=== PATIENT | female | born 1980 | race Caucasian/White ===

== ENCOUNTER 2018-11-14 11:24 | Observation (INO) ==
--- NOTE | 2018-11-14 12:04 | ED ---
History of Present Illness Primary Care Physician: No Primary Care Physician Chief Complaint: PIH History of Present Illness: 37 y/o at 34/2 (estimated due date 12/24/2018 by ultrasound on 08/09/2018 at 20 weeks) presenting to the OB ED with elevated blood pressures. Was sent over from care for woman by Dr. Ligia Posada after being found to have headache with "visual disturbances" and elevated blood pressure. 24-hour protein resulted at 318. Blood pressure in clinic was found to be 152/92. Patient is a history of elevated blood pressures/possible preeclampsia in the later stage of her pregnancies. States that she has never undergone treatment. so far has had no other abnormalities (including PIH workup). Patient states that she has a headache that started a couple days ago. Denies visual disturbances, right upper quadrant pain, leg swelling. Denies vaginal bleeding, leakage of fluid, contractions. Endorses movement. OB history: Vaginal delivery 2004 at 36-37 weeks and 2005, 7 pounds. Vaginal delivery 2008 at 36-37 weeks, 7 pounds. Vaginal delivery 2011 38-39 weeks. Medical history: None Surgical history: D&C 2018 Family history: Sister with a history of PIH Social history: No alcohol, illicit/recreational drug use No history of sexually transmitted diseases/infections Review of Systems All other systems reviewed negative except as stated in HPI Medications and Allergies Allergies Allergy/AdvReac Type Severity Reaction Status Date / Time No Known Allergies Allergy Unknown Uncoded 03/07/18 13:15 Exam Vital signs: Vital Signs 11/14/18 11:48 11/14/18 11:53 Temperature 98.2 F Pulse Rate 102 H Respiratory Rate 20 Blood Pressure 150/87 H Narrative: GENERAL: Well-nourished, well-developed patient. SKIN: Warm and dry. HEAD: Normocephalic and atraumatic. EYES: No scleral icterus. No injection or drainage. ENT: No nasal drainage noted. Mucous membranes pink. Airway patent. NECK: Supple, trachea midline. No JVD. CARDIOVASCULAR: Regular rate and rhythm without murmurs, gallops, or rubs. RESPIRATORY: Breath sounds equal bilaterally. No accessory muscle use. BREASTS: Bilateral exam showed no masses , no retractions, no nipple discharge. ABDOMEN/GI: Abdomen soft, non-tender, bowel sounds present, no rebound, no guarding Gravid to [-] weeks size Fundal Height: [-] GENITOURINARY: External Genitalia: intact and normal in appearance BUS glands: [-] Cervix: [-] Dilatation: [-] Effacement: [-] Station: [-] Presentation: [-] Membranes: [intact or ruptured] Uterine Contractions: [-] FHT's: Category: 1 Baseline: 150s Reactive: yes Variability: mod Decels: no EXTREMITIES: No cyanosis or edema. BACK: Nontender without obvious deformity. No CVA tenderness. NEUROLOGICAL: Awake and alert. Motor and sensory grossly within normal limits. Five out of 5 muscle strength in all muscle groups. Normal speech. Assessment and Plan - Diagnosis (1) Preeclampsia Code(s): O14.90 - Unspecified pre-eclampsia, unspecified trimester Status: Acute (2) Code(s): Z34.90 - Encounter for supervision of normal , unspecified, unspecified trimester Status: Acute - Plan 37-year-old at 34/2 admitted for preeclampsia workup and 23-hour observation. heart tracing reassuring. Blood pressure today 150/87. Last ultrasound was done at 20 weeks and showed no abnormalities. 1. Preeclampsia Order CBC, CMP, uric acid, P/C ratio, and BPP NST Monitor BPs 2. Expectant management Discussed w/Dr. Brock Discharge Plan - Discharge Disposition Patient Disposition: ED Admit(ED Internal Use Only) - Physicians Team ED Provider: Kevin Brock Primary Care Provider: Primary Care Zakia Wen - Rxs /Orders / Referrals /Forms Referrals: Primary Care Zakia Wen [Primary Care Provider] - See Instructions - Discharge Instructions Print Language: Yi
[2018-11-14] MEDS ORDERED: Acetaminophen 325 MG Tablet PO PRN (12:25)
--- NOTE | 2018-11-14 12:44 | P.HPOB ---
History of Present Illness Primary Care Physician: No Primary Care Physician Chief Complaint: PIH History of Present Illness: 37 y/o at 34/2 (estimated due date 12/24/2018 by ultrasound on 08/09/2018 at 20 weeks) presenting to the OB ED with elevated blood pressures. Was sent over from care for woman by Dr. Ligia Posada after being found to have headache with "visual disturbances" and elevated blood pressure. 24-hour protein resulted at 318. Blood pressure in clinic was found to be 152/92. Patient is a history of elevated blood pressures/possible preeclampsia in the later stage of her pregnancies. States that she has never undergone treatment. so far has had no other abnormalities (including PIH workup). Patient states that she has a headache that started a couple days ago. Denies visual disturbances, right upper quadrant pain, leg swelling. Denies vaginal bleeding, leakage of fluid, contractions. Endorses movement. OB history: Vaginal delivery 2004 at 36-37 weeks and 2005, 7 pounds. Vaginal delivery 2008 at 36-37 weeks, 7 pounds. Vaginal delivery 2011 38-39 weeks. Medical history: None Surgical history: D&C 2018 Family history: Sister with a history of PIH Social history: No alcohol, illicit/recreational drug use No history of sexually transmitted diseases/infections Review of Systems All other systems reviewed negative except as stated in HPI Medications and Allergies Allergies Allergy/AdvReac Type Severity Reaction Status Date / Time No Known Allergies Allergy Unknown Uncoded 03/07/18 13:15 Exam Vital signs: Vital Signs 11/14/18 11:48 11/14/18 11:53 Temperature 98.2 F Pulse Rate 102 H Respiratory Rate 20 Blood Pressure 150/87 H Narrative: GENERAL: Well-nourished, well-developed patient. SKIN: Warm and dry. HEAD: Normocephalic and atraumatic. EYES: No scleral icterus. No injection or drainage. ENT: No nasal drainage noted. Mucous membranes pink. Airway patent. NECK: Supple, trachea midline. No JVD. CARDIOVASCULAR: Regular rate and rhythm without murmurs, gallops, or rubs. RESPIRATORY: Breath sounds equal bilaterally. No accessory muscle use. BREASTS: Bilateral exam showed no masses , no retractions, no nipple discharge. ABDOMEN/GI: Abdomen soft, non-tender, bowel sounds present, no rebound, no guarding Gravid to [-] weeks size Fundal Height: [-] GENITOURINARY: External Genitalia: intact and normal in appearance BUS glands: [-] Cervix: [-] Dilatation: [-] Effacement: [-] Station: [-] Presentation: [-] Membranes: [intact or ruptured] Uterine Contractions: [-] FHT's: Category: 1 Baseline: 150s Reactive: yes Variability: mod Decels: no EXTREMITIES: No cyanosis or edema. BACK: Nontender without obvious deformity. No CVA tenderness. NEUROLOGICAL: Awake and alert. Motor and sensory grossly within normal limits. Five out of 5 muscle strength in all muscle groups. Normal speech. Assessment and Plan - Diagnosis (1) Preeclampsia Code(s): O14.90 - Unspecified pre-eclampsia, unspecified trimester Status: Acute (2) Code(s): Z34.90 - Encounter for supervision of normal , unspecified, unspecified trimester Status: Acute - Plan 37-year-old at 34/2 admitted for preeclampsia workup and 23-hour observation. heart tracing reassuring. Blood pressure today 150/87. Last ultrasound was done at 20 weeks and showed no abnormalities. 1. Preeclampsia Order CBC, CMP, uric acid, P/C ratio, and BPP NST Monitor BPs 2. Expectant management Discussed w/Dr. Brock
[2018-11-14 12:45] LABS: Hematocrit 35.7 % (35.0-46.0); Hemoglobin 12.1 gm/dL (11.6-15.3); Mean Corpuscular HGB Conc 33.8 % (32.0-36.0); Mean Corpuscular Hemoglobin 29.4 pg (27.0-34.0); Mean Corpuscular Volume 86.8 fL (80.0-100.0); Mean Platelet Volume 9.9 fL (7.0-11.0); Platelet Count 237 th/mm3 (150-450); Red Blood Count 4.12 mil/mm3 (4.00-5.30); Red Cell Distribution Width 13.8 % (11.6-17.2); White Blood Count 9.3 th/mm3 (4.0-11.0)
[2018-11-14 13:04] LABS: Bacteria,Urine Occasional /hpf; Bilirubin,Urine Negative (Negative); Clarity,Urine Clear (Clear); Color,Urine Straw (Yellw/Straw); Glucose,Urine (UA) Negative (Negative); Leukocyte Esterase,Urine Negative (Negative); Nitrite,Urine Negative (Negative); Specific Gravity,Urine 1.003 (1.002-1.035); Squamous Epithelial Cell,Urine 1 /hpf (0-5)
[2018-11-14 13:05] LABS: Alanine Aminotransferase 25 U/L (10-53); Anion Gap 10 meq/L (5-15); Aspartate Aminotransferase 25 U/L (15-37); Blood Urea Nitrogen 6 mg/dL (7-18); Calcium 8.7 mg/dL (8.5-10.1); Carbon Dioxide 24.8 meq/L (21.0-32.0); Chloride 106 meq/L (98-107); Glomerular Filtration Rate Greater Than 89 mL/min (>89); Glucose,Random 86 mg/dL (74-106); Potassium 3.6 meq/L (3.5-5.1); Sodium 141 meq/L (136-145); Uric Acid 4.4 mg/dl (2.6-6.0)
[2018-11-14 13:06] LABS: Creatinine,Urine Random 21 mg/dL (27-300); Protein/Creatinine Ratio,Urine 0.24 (0.00-0.14)
[2018-11-14 13:08] LABS: Alkaline Phosphatase 116 U/L (45-117); Total Protein 7.1 g/dL (6.4-8.2)
[2018-11-14 23:04] VITALS: RESP 16
[2018-11-15 03:20] VITALS: TEMP 98.2
--- NOTE | 2018-11-15 07:41 | P.OBLABOR ---
Objective Vital Signs: Vital Signs - 8 hr 11/15/18 03:19 Temperature 98.2 F Pulse Rate 74 Respiratory Rate 16 Blood Pressure 120/61 Objective: Pelvic Exam: Cervix: [-] Dilatation: [-] Effacement: [-] Station: [-] Presentation: [-] Membranes: [intact or ruptured] Uterine Contractions: [-] FHT's: Category: [-] Baseline: [-] Reactive: [-] Variability: [-] Decels: [-] Assessment and Plan - Diagnosis (1) Preeclampsia Code(s): O14.90 - Unspecified pre-eclampsia, unspecified trimester Status: Acute (2) Code(s): Z34.90 - Encounter for supervision of normal , unspecified, unspecified trimester Status: Acute
--- NOTE | 2018-11-15 07:55 | P.OBANTE ---
Subjective - Diagnosis (1) Preeclampsia Diagnosis: Principal Interval History: No new symptoms. Patient states she still has headache, but symptoms are minimal. No vision changes, LE swelling, RUQ pain. Feeling well enough to go home. Vitals overnight wnl. Objective Vital Signs and I&O: Vital Signs 11/14/18 11:48 11/14/18 11:53 11/14/18 12:30 Temperature 98.2 F Pulse Rate 102 H 79 Respiratory Rate 20 Blood Pressure 150/87 H 118/63 11/14/18 12:45 11/14/18 13:41 11/14/18 14:35 Temperature Pulse Rate 90 79 Respiratory Rate 18 Blood Pressure 132/77 11/14/18 14:55 11/14/18 15:45 11/14/18 15:50 Temperature Pulse Rate 86 84 90 Respiratory Rate 18 Blood Pressure 138/82 11/14/18 15:55 11/14/18 16:00 11/14/18 16:40 Temperature 98.7 F Pulse Rate 91 H 88 Respiratory Rate Blood Pressure 11/14/18 16:55 11/14/18 17:20 11/14/18 17:25 Temperature Pulse Rate 115 H 100 H 108 H Respiratory Rate Blood Pressure 11/14/18 17:31 11/14/18 17:50 11/14/18 18:25 Temperature Pulse Rate 90 84 89 Respiratory Rate Blood Pressure 134/78 11/14/18 18:47 11/14/18 18:48 11/14/18 19:37 Temperature 98.1 F Pulse Rate 94 H 81 81 Respiratory Rate 16 18 Blood Pressure 127/68 128/81 11/14/18 23:03 11/15/18 03:19 Temperature 98.1 F 98.2 F Pulse Rate 73 74 Respiratory Rate 16 16 Blood Pressure 125/92 H 120/61 Intake & Output 11/14/18 11/15/18 11/15/18 18:59 06:59 18:59 Weight 83.915 kg Lab and Micro Results: Laboratory Results - last 24 hr 11/14/18 11/14/18 11/14/18 11:45 11:45 11:49 WBC 9.3 RBC 4.12 Hgb 12.1 Hct 35.7 MCV 86.8 MCH 29.4 MCHC 33.8 RDW 13.8 Plt Count 237 MPV 9.9 Sodium Potassium Chloride Carbon Dioxide Anion Gap BUN Creatinine Estimated GFR Random Glucose Uric Acid Calcium Total Bilirubin AST ALT Alkaline Phosphatase Total Protein Albumin Urine Color Straw Urine Clarity Clear Urine pH 6.0 Ur Specific [place] 1.003 Urine Protein Negative Urine Glucose (UA) Negative Urine Ketones 20 Urine Occult Blood Negative Urine Nitrate Negative Urine Bilirubin Negative Urine Urobilinogen Less than 2 Ur Leukocyte Esterase Negative Urine RBC Less than 1 Urine WBC Less than 1 Ur Squamous Epith Cells 1 Urine Bacteria Occasional H Micro UA Comment Culture not ind Ur Microscopic Review Not Reportable Urine Culture Comments Culture not ind Ur Random Creatinine 21 L U Random Total Protein Less than 5.0 Protein/Creatinin Ratio 0.24 H 11/14/18 11:49 WBC RBC Hgb Hct MCV MCH MCHC RDW Plt Count MPV Sodium 141 Potassium 3.6 Chloride 106 Carbon Dioxide 24.8 Anion Gap 10 BUN 6 L Creatinine 0.69 Estimated GFR Greater than 89 Random Glucose 86 Uric Acid 4.4 Calcium 8.7 Total Bilirubin 0.3 AST 25 ALT 25 Alkaline Phosphatase 116 Total Protein 7.1 Albumin 3.0 L Urine Color Urine Clarity Urine pH Ur Specific [place] Urine Protein Urine Glucose (UA) Urine Ketones Urine Occult Blood Urine Nitrate Urine Bilirubin Urine Urobilinogen Ur Leukocyte Esterase Urine RBC Urine WBC Ur Squamous Epith Cells Urine Bacteria Micro UA Comment Ur Microscopic Review Urine Culture Comments Ur Random Creatinine U Random Total Protein Protein/Creatinin Ratio Physical Exam: GENERAL: Well-nourished, well-developed patient. CARDIOVASCULAR: Regular rate and rhythm without murmurs, gallops, or rubs. RESPIRATORY: Breath sounds equal bilaterally. No accessory muscle use. ABDOMEN/GI: Abdomen soft, non-tender. GENITOURINARY: FHT's: Category: 1 Baseline: 130 Reactive: yes Variability: mod Decels: no EXTREMITIES: No cyanosis or edema, non-tender, without signs of DVT. Assessment and Plan - Diagnosis (1) Preeclampsia Code(s): O14.90 - Unspecified pre-eclampsia, unspecified trimester Status: Acute (2) Code(s): Z34.90 - Encounter for supervision of normal , unspecified, unspecified trimester Status: Acute - Plan 37 y/o @34/3 w/preeclampsia admitted for 23 hr observation. 1. Preeclampsia P/C ratio <.3, rest of work-up sans 24 hr protein not concerning BP wnl overnight 2. Con't expectant management Plan for DC today after AM BP Update: BP 141/88. Advise bedrest at home
[2018-11-15 10:31] VITALS: BP 141/88; PULSE 79
== END 2018-11-15 10:15 | disposition home or self-care (01) ==
LOC: H2E 11:24 → HOBED 11:24 → H2E 14:00
PROVIDERS: ADMIT Obstetrics & Gynecology Maternal & Fetal Medicine; ATTEND Obstetrics & Gynecology Maternal & Fetal Medicine
CPT/HCPCS: 36415; 59025; 76816; 76819; 80053; 81001; 82570; 84155; 84157; 84550; 85027; 99285; G0378

== ENCOUNTER 2018-11-21 10:23 | Inpatient (IN) ==
[2018-11-21 11:03] LABS: Hematocrit 34.2 % (35.0-46.0); Hemoglobin 11.5 gm/dL (11.6-15.3); Mean Corpuscular HGB Conc 33.5 % (32.0-36.0); Mean Corpuscular Hemoglobin 28.7 pg (27.0-34.0); Mean Corpuscular Volume 85.7 fL (80.0-100.0); Mean Platelet Volume 9.4 fL (7.0-11.0); Platelet Count 224 th/mm3 (150-450); Red Blood Count 3.99 mil/mm3 (4.00-5.30); Red Cell Distribution Width 14.5 % (11.6-17.2); White Blood Count 6.9 th/mm3 (4.0-11.0)
--- NOTE | 2018-11-21 11:17 | ED ---
History of Present Illness Primary Care Physician: No Primary Care Physician History of Present Illness: 38-year-old female at 35 and 2 weeks. She comes today due to elevated blood pressures. She was seen at the office today and had a blood pressure of 164/90. She has been seen recently in the ED for her elevated blood pressures. She was discharged without any medication and during her stay her blood pressures were less than 160/110. She was told to complete her 24-hour urine. Her 24-hour urine was 318. She states that she has had a headache for the past couple weeks. She denies any shortness of breath, chest pain, lower extremity swelling. She denies any upper quadrant abdominal pain. She denies any vaginal bleeding, loss of fluids, decreased movement, or contractions. She states that last week she had an ultrasound that showed no abnormalities. 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 2 pregnancies induced at 37 weeks delivered vaginally. Another at 39 weeks born vaginally. One miscarriage last January that required D&C Past medical history: None Surgical history: Finger surgery 2014, D&C 2018 Allergies: Denies Social: Denies any cigarettes, alcohol, or drug use Meds: None Weeks Gestation:: 35 Para: 3 : 5 Review of Systems Constitutional: Denies fever(s) Eyes: Denies change in vision Ears, Nose, Mouth, and Throat: Reports headache(s) Cardiovascular: Denies chest pain, Denies leg swelling Respiratory: Reports shortness of breath with activity Gastrointestinal: Denies abdominal pain, Denies nausea, Denies vomiting Genitourinary: Denies painful urination, Denies vaginal dryness, Denies vaginal odor Musculoskeletal: Denies joint swelling Skin/Breast: Denies rash Neurologic: Reports headache(s) Endocrine: Denies flushing Hematologic/Lymphatic: Denies easy bruising Allergic/Immunologic: Denies hives PMFSH - Travel History Recent Travel in the [place] Within the Last 8 Weeks: No Recent Travel Out of the Country Within the Last 8 Weeks: No Medications and Allergies Active Medications: Active Medications Sodium Chloride (Ns Flush) 2 ml IV.FLUSH BID OBED Sodium Chloride (Ns Flush) 2 ml IV.FLUSH PRN PRN PRN Reason: FLUSH AFTER USING IV ACCESS Allergies Allergy/AdvReac Type Severity Reaction Status Date / Time No Known Allergies Allergy Unknown Uncoded 03/07/18 13:15 Home Medications Medication Instructions Recorded Confirmed Type PNV cmb#95-ferrous fumarate-FA 1 tab PO DAILY 11/14/18 11/21/18 History [] Exam Vital signs: Vital Signs 11/21/18 10:39 11/21/18 10:45 Temperature 98.0 F Pulse Rate 104 H 87 Respiratory Rate 17 Blood Pressure 150/92 H 137/86 Intake & Output 11/20/18 11/21/18 11/21/18 18:59 06:59 18:59 Weight 85.275 kg Narrative: GENERAL: Well-nourished, well-developed patient. SKIN: Warm and dry. HEAD: Normocephalic and atraumatic. EYES: No scleral icterus. No injection or drainage. ENT: No nasal drainage noted. Mucous membranes pink. Airway patent. NECK: Supple, trachea midline. No JVD. CARDIOVASCULAR: Regular rate and rhythm without murmurs, gallops, or rubs. RESPIRATORY: Breath sounds equal bilaterally. No accessory muscle use. BREASTS: Bilateral exam showed no masses , no retractions, no nipple discharge. ABDOMEN/GI: Abdomen soft, non-tender, bowel sounds present, no rebound, no guarding FHT's: Category: 1 Baseline: 145 Reactive: yes Variability: moderate Decels: none EXTREMITIES: No cyanosis or edema. BACK: Nontender without obvious deformity. No CVA tenderness. NEUROLOGICAL: Awake and alert. Motor and sensory grossly within normal limits. Five out of 5 muscle strength in all muscle groups. Normal speech. Results - Labs CBC & Chem 7: 11/21/18 10:49 11/21/18 10:49 Labs: Laboratory Results - last 24 hr 11/21/18 10:49 WBC 6.9 RBC 3.99 L Hgb 11.5 L Hct 34.2 L MCV 85.7 MCH 28.7 MCHC 33.5 RDW 14.5 Plt Count 224 MPV 9.4 Assessment and Plan - Diagnosis (1) Hypertension affecting Code(s): O16.9 - Unspecified maternal hypertension, unspecified trimester Status: Acute - Plan 38-year-old female at 35 weeks and 2 days presents with elevated pressures in the office. Her pressures were 164/90. Here in triage her pressure has been 150/92 and repeat was 137/80. Cervical exam in office was closed and thick and soft. 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 Raymond Discharge Plan - Discharge Disposition Patient Disposition: ED Admit(ED Internal Use Only) - Discharge Condition Condition: Stable - Physicians Team ED Provider: Dulce Maria Raymond Primary Care Provider: Primary Care Zakia Wen - Rxs /Orders / Referrals /Forms Prescriptions: No Action PNV cmb#95-ferrous fumarate-FA [] 28 mg iron- 800 mcg Tablet 1 tab PO DAILY - Discharge Instructions Print Language: Welsh
[2018-11-21 11:38] LABS: Bacteria,Urine Rare /hpf; Bilirubin,Urine Negative (Negative); Clarity,Urine Clear (Clear); Color,Urine Straw (Yellw/Straw); Glucose,Urine (UA) Negative (Negative); Leukocyte Esterase,Urine Negative (Negative); Mucus,Urine Few /lpf (Occasional); Nitrite,Urine Negative (Negative); Protein/Creatinine Ratio,Urine 0.35 (0.00-0.14); Specific Gravity,Urine 1.003 (1.002-1.035); Squamous Epithelial Cell,Urine <1 /hpf (0-5); Total Protein,Urine Random 8.5 mg/dL (0-11.8)
[2018-11-21 11:54] LABS: Alanine Aminotransferase 22 U/L (10-53); Albumin 2.8 g/dL (3.4-5.0); Anion Gap 8 meq/L (5-15); Aspartate Aminotransferase 20 U/L (15-37); Blood Urea Nitrogen 5 mg/dL (7-18); Calcium 8.3 mg/dL (8.5-10.1); Carbon Dioxide 24.5 meq/L (21.0-32.0); Chloride 109 meq/L (98-107); Glomerular Filtration Rate Greater Than 89 mL/min (>89); Glucose,Random 95 mg/dL (74-106); Potassium 3.5 meq/L (3.5-5.1); Sodium 141 meq/L (136-145)
[2018-11-21 11:56] LABS: Alkaline Phosphatase 119 U/L (45-117); Total Protein 6.6 g/dL (6.4-8.2)
[2018-11-21] MEDS ORDERED: Sodium Chlor 0.9% Inj 500 ML IV.SIG PRN (12:33)
[2018-11-21] MEDS ORDERED: fentaNYL Citrate Inj 100 MCG/2 ML Ampul IV.PUSH PRN ×2 (12:33)
[2018-11-21] MEDS ORDERED: Naloxone Inj 0.4 MG/ML Vial IV.PUSH PRN (12:33)
[2018-11-21] MEDS ORDERED: Sod Chloride 0.9% Inj 1,000 ML IV.CONT PRN (12:33)
[2018-11-21] MEDS ORDERED: Oxytocin 30 Units/500ml Premix 30 UNITS/500 ML BAG IV.SIG ONE (12:33)
--- NOTE | 2018-11-21 12:43 | P.HPOB ---
History of Present Illness Primary Care Physician: No Primary Care Physician History of Present Illness: 38-year-old female at 35 and 2 weeks. She comes today due to elevated blood pressures. She was seen at the office today and had a blood pressure of 164/90. She has been seen recently in the ED for her elevated blood pressures. She was discharged without any medication and during her stay her blood pressures were less than 160/110. She was told to complete her 24-hour urine. Her 24-hour urine was 318. She states that she has had a headache for the past couple weeks. She denies any shortness of breath, chest pain, lower extremity swelling. She denies any upper quadrant abdominal pain. She denies any vaginal bleeding, loss of fluids, decreased movement, or contractions. She states that last week she had an ultrasound that showed no abnormalities. 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 2 pregnancies induced at 37 weeks delivered vaginally. Another at 39 weeks born vaginally. Pelvis was tested 8 pounds 13 ounces but complicated by PPH. one miscarriage last January that required D&C Past medical history: None Surgical history: Finger surgery 2014, D&C 2018 Allergies: Denies Social: Denies any cigarettes, alcohol, or drug use Meds: None Weeks Gestation:: 35 Para: 3 : 5 Review of Systems Constitutional: Denies fever(s) Eyes: Denies change in vision Ears, Nose, Mouth, and Throat: Reports headache(s) Cardiovascular: Denies chest pain, Denies leg swelling Respiratory: Reports shortness of breath with activity Gastrointestinal: Denies abdominal pain, Denies nausea, Denies vomiting Genitourinary: Denies painful urination, Denies vaginal dryness, Denies vaginal odor Musculoskeletal: Denies joint swelling Skin/Breast: Denies rash Neurologic: Reports headache(s) Endocrine: Denies flushing Hematologic/Lymphatic: Denies easy bruising Allergic/Immunologic: Denies hives PMFSH - Travel History Recent Travel in the [place] Within the Last 8 Weeks: No Recent Travel Out of the Country Within the Last 8 Weeks: No Medications and Allergies Active Medications: Active Medications Sodium Chloride (Ns Flush) 2 ml IV.FLUSH BID OBED Sodium Chloride (Ns Flush) 2 ml IV.FLUSH PRN PRN PRN Reason: FLUSH AFTER USING IV ACCESS Allergies Allergy/AdvReac Type Severity Reaction Status Date / Time No Known Allergies Allergy Unknown Uncoded 03/07/18 13:15 Home Medications Medication Instructions Recorded Confirmed Type PNV cmb#95-ferrous fumarate-FA 1 tab PO DAILY 11/14/18 11/21/18 History [] Exam Vital signs: Vital Signs 11/21/18 10:39 11/21/18 10:45 Temperature 98.0 F Pulse Rate 104 H 87 Respiratory Rate 17 Blood Pressure 150/92 H 137/86 Intake & Output 11/20/18 11/21/18 11/21/18 18:59 06:59 18:59 Weight 85.275 kg Narrative: GENERAL: Well-nourished, well-developed patient. SKIN: Warm and dry. HEAD: Normocephalic and atraumatic. EYES: No scleral icterus. No injection or drainage. ENT: No nasal drainage noted. Mucous membranes pink. Airway patent. NECK: Supple, trachea midline. No JVD. CARDIOVASCULAR: Regular rate and rhythm without murmurs, gallops, or rubs. RESPIRATORY: Breath sounds equal bilaterally. No accessory muscle use. BREASTS: Bilateral exam showed no masses , no retractions, no nipple discharge. ABDOMEN/GI: Abdomen soft, non-tender, bowel sounds present, no rebound, no guarding Cervical exam 1 cm 50% effaced out of pelvis FHT's: Category: 1 Baseline: 145 Reactive: yes Variability: moderate Decels: none EXTREMITIES: No cyanosis or edema. BACK: Nontender without obvious deformity. No CVA tenderness. NEUROLOGICAL: Awake and alert. Motor and sensory grossly within normal limits. Five out of 5 muscle strength in all muscle groups. Normal speech. Results - Labs CBC & Chem 7: 11/21/18 10:49 11/21/18 10:49 Labs: Laboratory Results - last 24 hr 11/21/18 10:49 WBC 6.9 RBC 3.99 L Hgb 11.5 L Hct 34.2 L MCV 85.7 MCH 28.7 MCHC 33.5 RDW 14.5 Plt Count 224 MPV 9.4 Assessment and Plan - Diagnosis (1) Hypertension affecting Code(s): O16.9 - Unspecified maternal hypertension, unspecified trimester Status: Acute - Plan 38-year-old female at 35 weeks and 2 days presents with elevated pressures in the office. Her pressures were 164/90. Here in triage her pressure has been 150/92 and repeat was 137/80. Cervical exam in office was closed and thick and soft. 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 Raymond
[2018-11-21] MEDS ORDERED: Citric Acid/Sodium Citrate Liq 30 ML UDC PO SCH (12:45)
[2018-11-21 13:49] LABS: Lymphocytes 8 % (9-44); Monocytes 4 % (0-8); Platelet Estimate Normal (Normal); Platelet Morphology Normal (Normal); RBC Morphology Normal (Normal)
--- NOTE | 2018-11-21 14:23 | P.OBGPN ---
Patient was seen and evaluated She presented to triage with elevated blood pressures from the office and complains of headache intermittent for the last 1-2 weeks History of preeclampsia with all of her pregnancies History of hemorrhage with her largest delivery at 8 pounds 13 ounces Cervical exam was performed Patient was counseled of alternatives benefits complications of delivery -complications including but not limited to retinopathy of prematurity, cerebral palsy, intraventricular hemorrhage, necrotizing enterocolitis, respiratory distress syndrome. Complications of continuing from a maternal standpoint hypertensive crisis, seizure, liver rupture, remote possibility of . Patient agrees to proceed with induction of labor. Due to the severe features will also initiate magnesium sulfate.
[2018-11-21] MEDS ORDERED: NIFEdipine 10 MG Capsule PO PRN (15:00)
[2018-11-21] MEDS ORDERED: Mag Sulf/Water 4 gm/100 ml 100 ML IV.SIG ONE (15:00)
[2018-11-21] MEDS ORDERED: Labetalol HCl Inj 100 MG/20 ML Vial IV.PUSH PRN ×3 (15:00)
[2018-11-21] MEDS: Mag Sulf/Water 40 gm/1000 ml 40 GM/1,000 ML BAG IV.CONT SCH (15:30)
[2018-11-22] MEDS ORDERED: Oxytocin 30 Units/500ml Premix 30 UNITS/500 ML BAG IV.SIG PRN (04:51)
[2018-11-22] MEDS: Acetaminophen 325 MG Tablet PO PRN ×4 (08:06→19:52)
[2018-11-22] MEDS: guaiFENesin/Dextromethorphan 200 MG/20 MG 10 ML UDC PO PRN ×4 (08:21→19:53)
--- NOTE | 2018-11-22 08:42 | P.OBLABOR ---
Subjective Interval history: Patient states she is doing well, feeling stronger labor pains now. No other complaints. Objective Vital Signs: Vital Signs - 8 hr 11/22/18 01:00 11/22/18 01:15 11/22/18 02:00 Temperature Pulse Rate 80 73 Respiratory Rate 16 Blood Pressure 122/75 139/86 11/22/18 02:21 11/22/18 03:00 11/22/18 03:23 Temperature Pulse Rate 95 H Respiratory Rate 16 18 Blood Pressure 142/92 H 11/22/18 04:00 11/22/18 04:30 11/22/18 05:24 Temperature Pulse Rate 85 95 H Respiratory Rate 18 Blood Pressure 138/85 143/87 H 11/22/18 05:30 11/22/18 05:58 11/22/18 06:00 Temperature 98.7 F Pulse Rate 91 H 88 Respiratory Rate 18 Blood Pressure 130/81 127/79 11/22/18 06:30 11/22/18 07:00 11/22/18 07:06 Temperature Pulse Rate 87 Respiratory Rate 18 18 Blood Pressure 132/85 11/22/18 07:30 11/22/18 07:36 11/22/18 08:00 Temperature 97.4 F L Pulse Rate 92 H 90 Respiratory Rate Blood Pressure 141/90 H 134/74 11/22/18 08:06 11/22/18 08:24 11/22/18 08:25 Temperature Pulse Rate 93 H 90 Respiratory Rate 18 Blood Pressure 127/73 134/70 Objective: Pelvic Exam: Last exam at 7:30 am this morning Cervix: [-] Dilatation: 2 Effacement: 70 Station: -2 Presentation: [-] Membranes: [intact or ruptured] Uterine Contractions: [-] FHT's: Category: 1 Baseline: 130s Reactive: yes Variability: mod Decels: no Reflexes 3+. No sign of respiratory depression. Assessment and Plan - Diagnosis (1) Hypertension affecting Code(s): O16.9 - Unspecified maternal hypertension, unspecified trimester Status: Acute (2) Code(s): Z34.90 - Encounter for supervision of normal , unspecified, unspecified trimester Status: Acute - Plan 38 y/o @35.3 weeks in latent labor. S/p 12 hrs cervidil. On Pit and MgS04. Con't MgSo4
--- NOTE | 2018-11-22 09:28 | P.OBGPN ---
Patient seen and evaluated. Complaining of headache earlier-improved with Tylenol Controlled AROM copious clear fluid Cervical exam /-2 heart rate category 1 BP is improved Continue current plan Epidural for pain management as needed
[2018-11-22] MEDS: Mag Sulf/Water 40 gm/1000 ml 40 GM/1,000 ML BAG IV.CONT SCH (11:30)
[2018-11-22] MEDS ORDERED: fentaNYL 2MCG-Bupiv 0.125% Epi 150 ML EPIDURAL ONE (12:07)
[2018-11-22] MEDS ORDERED: Lidocaaine 1.5%/Epinephrine 1:200,000 PF Inj 5 ML Amp ONE (13:45)
[2018-11-22] MEDS ORDERED: Lidocaine PF 1% Inj 5 ML Vial ONE (13:45)
--- NOTE | 2018-11-22 14:14 | P.OBGPN ---
Pt comfortable with epidural. Not feeling well with the Magnesium Sulfate. Was just given Zofran for nausea. Pit at 18 mU. FHTs cat 1, reactive. SVE unchanged 4-5/90/-2. Ctxs every 3-5 min. IUPC placed without difficulty. Will continue to increase pitocin.
[2018-11-22] MEDS ORDERED: fentaNYL 2MCG-Bupiv 0.125% Epi 150 ML EPIDURAL PRN (14:44)
[2018-11-22] MEDS ORDERED: fentaNYL Citrate Inj 100 MCG/2 ML Ampul EPIDURAL ONE (15:00)
[2018-11-22] MEDS ORDERED: Measles/Mumps/Rubella Vaccine Inj 0.5 ML Vial SQ ONE (16:00)
[2018-11-22] MEDS ORDERED: Diphtheria/Tetanus/Pertussis Vaccine Inj 0.5 ML Syringe IM ONE (16:00)
--- NOTE | 2018-11-22 18:47 | P.OBGPN ---
Pt comfortable with epidural. Is getting tired. SVE /-2. FHTS cat 1, Ctxs every 3-4 min. Will continue current mgmt.
[2018-11-22] MEDS ORDERED: miSOPROStol 200 MCG Tablet ONE ×2 (19:47→21:40)
[2018-11-22] MEDS ORDERED: Tranexamic Acid Inj 1,000 MG/10 ML Ampul ONE (19:47)
[2018-11-22] MEDS ORDERED: Carboprost Tromethamine Inj 250 MCG/ML Ampul IM ONE (21:16)
[2018-11-22 21:39] LABS: Baso # (Auto) 0.1 th/mm3 (0.0-0.2); Baso % (Auto) 0.9 % (0.0-2.0); Eos % (Auto) 0.2 % (0.0-4.0); Hematocrit 30.3 % (35.0-46.0); Hemoglobin 10.7 gm/dL (11.6-15.3); Lymph # (Auto) 0.6 th/mm3 (1.0-4.8); Lymph % (Auto) 4.3 % (9.0-44.0); Mean Corpuscular HGB Conc 35.5 % (32.0-36.0); Mean Corpuscular Hemoglobin 29.6 pg (27.0-34.0); Mean Corpuscular Volume 83.4 fL (80.0-100.0); Mean Platelet Volume 9.1 fL (7.0-11.0); Mono # (Auto) 0.5 th/mm3 (0.0-0.9); Mono % (Auto) 4.1 % (0.0-8.0); Neut % (Auto) 90.5 % (16.0-70.0); Platelet Count 211 th/mm3 (150-450); Red Blood Count 3.63 mil/mm3 (4.00-5.30); Red Cell Distribution Width 14.8 % (11.6-17.2); White Blood Count 13.2 th/mm3 (4.0-11.0)
[2018-11-22] MEDS: miSOPROStol 200 MCG Tablet PO SCH (21:45)
--- NOTE | 2018-11-22 21:53 | P.OBDELI ---
Weeks Gestation: 35 Patient Started Active Labor: Yes Medical Induction of Labor: Yes Medical Induction Start Date: 11/21/18 Artificial Rupture of Membrane: Yes Artificial ROM Date: 11/22/18 Anesthesia: Epidural Episiotomy: none Vaginal Delivery: Normal Presentation: Vertex Nuchal Cord: None Delayed Cord Clamping (45 sec): Yes Placenta: Spontaneous delivery Laceration: 2 deg Repair: Vicryl running (3-0) Estimated blood loss (mL): 2,500 : Female Infant Female A Delivery Date: 11/22/18 Weight: 2.64 kg score (1 min): 8 score (5 min): 8 Additional Information: hemorrhage- Pt known risk due to hx PP hemorrhage with her last delivery. Pt given 1000 mg Tranexamic acid at cord clamp. Placenta slow to deliver. Hemorrhage after placenta delivered. Pt given 800 mcg and then an additional 200 mcg of cytotec. Magnesium sulfate stopped. Uterine massage and exploration performed. Hemabate 250 mcg IM given. Uterine curettage performed under US guidance with assistance of Dr. Gutierrez. Only clots removed. Bleeding decreased and uterus felt firm. Pt typed and crossed for 2 Units PRBCs. 2 units transfused.
[2018-11-22 21:54] VITALS: O2SAT 98
[2018-11-22] MEDS ORDERED: Bisacodyl 10 MG Supp RECTAL PRN (22:49)
[2018-11-22] MEDS ORDERED: Zolpidem Tartrate 5 MG Tablet PO PRN (22:49)
[2018-11-22] MEDS ORDERED: Witch Hazel 50%/Glyderin 12.5% 40 Pad Jar RECTAL PRN (22:49)
[2018-11-22] MEDS ORDERED: Benzocaine 20% Top Spray 60 ML Can TOPICAL PRN (22:49)
[2018-11-22] MEDS ORDERED: Tranexamic Acid Inj 1,000 MG in Sodium Chlor 0.9% Inj 100 ML IV.SIG ONE (23:00)
[2018-11-23 01:46] LABS: Hematocrit 32.2 % (35.0-46.0); Hemoglobin 10.9 gm/dL (11.6-15.3)
[2018-11-23] MEDS ORDERED: ceFAZolin 2 GM IV; once IV.SIG ONE (03:45)
[2018-11-23] MEDS: miSOPROStol 200 MCG Tablet PO SCH ×4 (04:00→18:05)
[2018-11-23] MEDS: Acetaminophen 325 MG Tablet PO PRN ×2 (05:02→13:38)
[2018-11-23] MEDS: Mag Sulf/Water 40 gm/1000 ml 40 GM/1,000 ML BAG IV.CONT SCH (05:31)
[2018-11-23] MEDS: Oxytocin 30 Units/500ml Premix 30 UNITS/500 ML BAG IV.SIG SCH ×3 (05:34→17:01)
--- NOTE | 2018-11-23 07:59 | P.PNOB ---
Subjective Post day: 1 Interval history: Pt states she feels better than when she came in. She denies any sxs. Bleeding is minimal. BPs have been normal. Objective Vital Signs/I&O: Vital Signs 11/22/18 08:00 11/22/18 08:06 11/22/18 08:24 Temperature Pulse Rate 90 93 H Respiratory Rate 18 Blood Pressure 134/74 127/73 Pulse Oximetry 11/22/18 08:25 11/22/18 09:10 11/22/18 09:26 Temperature Pulse Rate 90 94 H Respiratory Rate 18 Blood Pressure 134/70 121/75 Pulse Oximetry 11/22/18 09:43 11/22/18 10:13 11/22/18 10:15 Temperature 98.4 F Pulse Rate 84 84 Respiratory Rate 18 Blood Pressure 149/91 H 145/89 H Pulse Oximetry 11/22/18 11:03 11/22/18 11:04 11/22/18 12:01 Temperature 97.6 F Pulse Rate 82 77 Respiratory Rate 18 18 Blood Pressure 120/72 137/84 Pulse Oximetry 11/22/18 12:13 11/22/18 12:25 11/22/18 12:35 Temperature Pulse Rate 103 H 96 H 92 H Respiratory Rate Blood Pressure 147/97 H 138/89 132/78 Pulse Oximetry 11/22/18 12:40 11/22/18 12:50 11/22/18 12:55 Temperature Pulse Rate 90 84 95 H Respiratory Rate 18 Blood Pressure 132/75 117/62 129/73 Pulse Oximetry 11/22/18 13:00 11/22/18 13:25 11/22/18 13:40 Temperature Pulse Rate 109 H 108 H 87 Respiratory Rate Blood Pressure 144/74 H 130/76 128/74 Pulse Oximetry 11/22/18 13:50 11/22/18 13:55 11/22/18 13:57 Temperature 97.9 F Pulse Rate 95 H 86 84 Respiratory Rate 18 Blood Pressure 111/62 Pulse Oximetry 11/22/18 14:05 11/22/18 14:10 11/22/18 14:13 Temperature Pulse Rate 85 87 87 Respiratory Rate Blood Pressure 80/53 L 111/57 L Pulse Oximetry 11/22/18 14:20 11/22/18 14:25 11/22/18 14:30 Temperature Pulse Rate 89 100 H 95 H Respiratory Rate Blood Pressure Pulse Oximetry 11/22/18 14:35 11/22/18 14:40 11/22/18 14:47 Temperature Pulse Rate 89 92 H 87 Respiratory Rate 18 Blood Pressure 105/64 Pulse Oximetry 11/22/18 14:50 11/22/18 14:55 11/22/18 15:00 Temperature Pulse Rate 94 H 88 80 Respiratory Rate Blood Pressure Pulse Oximetry 11/22/18 15:05 11/22/18 15:20 11/22/18 15:40 Temperature Pulse Rate 80 79 99 H Respiratory Rate Blood Pressure 109/59 L Pulse Oximetry 11/22/18 15:50 11/22/18 15:51 11/22/18 15:55 Temperature Pulse Rate 90 88 Respiratory Rate 18 Blood Pressure 127/85 Pulse Oximetry 11/22/18 16:00 11/22/18 16:05 11/22/18 16:10 Temperature 97.5 F L Pulse Rate 96 H 90 Respiratory Rate Blood Pressure Pulse Oximetry 11/22/18 16:15 11/22/18 16:20 11/22/18 16:25 Temperature Pulse Rate 85 86 91 H Respiratory Rate Blood Pressure Pulse Oximetry 11/22/18 16:35 11/22/18 16:50 11/22/18 16:55 Temperature Pulse Rate 91 H 85 94 H Respiratory Rate Blood Pressure Pulse Oximetry 11/22/18 17:21 11/22/18 17:25 11/22/18 17:29 Temperature 98.9 F Pulse Rate 92 H 111 H Respiratory Rate 18 Blood Pressure 150/80 H Pulse Oximetry 11/22/18 17:30 11/22/18 17:35 11/22/18 18:10 Temperature Pulse Rate 107 H 105 H 98 H Respiratory Rate Blood Pressure Pulse Oximetry 11/22/18 18:24 11/22/18 18:25 11/22/18 18:40 Temperature Pulse Rate 93 H 95 H 99 H Respiratory Rate 18 Blood Pressure 127/73 Pulse Oximetry 11/22/18 18:45 11/22/18 18:50 11/22/18 18:55 Temperature Pulse Rate 98 H 99 H 102 H Respiratory Rate Blood Pressure Pulse Oximetry 11/22/18 19:05 11/22/18 19:15 11/22/18 19:30 Temperature Pulse Rate 101 H 96 H 90 Respiratory Rate 16 16 Blood Pressure 135/91 H Pulse Oximetry 11/22/18 19:45 11/22/18 20:00 11/22/18 20:15 Temperature 97.9 F Pulse Rate 96 H 96 H 101 H Respiratory Rate 16 16 16 Blood Pressure 138/94 H 135/88 147/88 H Pulse Oximetry 11/22/18 20:25 11/22/18 21:10 11/22/18 21:30 Temperature Pulse Rate 101 H 108 H 104 H Respiratory Rate 16 Blood Pressure 133/99 H 150/92 H 151/130 H Pulse Oximetry 11/22/18 21:52 11/22/18 21:55 11/22/18 22:00 Temperature 97.9 F Pulse Rate 90 Respiratory Rate 16 Blood Pressure 110/64 117/69 Pulse Oximetry 98 11/22/18 22:09 11/22/18 22:10 11/22/18 22:28 Temperature 97.5 F L Pulse Rate 99 H 93 H Respiratory Rate 16 Blood Pressure 116/73 125/78 Pulse Oximetry 11/22/18 22:30 11/22/18 22:40 11/22/18 22:45 Temperature 97.5 F L Pulse Rate 97 H 98 H Respiratory Rate 16 16 Blood Pressure 123/84 118/71 Pulse Oximetry 11/22/18 23:00 11/22/18 23:10 11/22/18 23:15 Temperature Pulse Rate 105 H 100 H 97 H Respiratory Rate 16 16 Blood Pressure 92/54 L 129/88 134/85 Pulse Oximetry 11/22/18 23:23 11/22/18 23:55 11/23/18 00:25 Temperature Pulse Rate 92 H 85 Respiratory Rate 16 16 16 Blood Pressure 127/70 133/74 Pulse Oximetry 11/23/18 00:55 11/23/18 01:45 11/23/18 02:00 Temperature 97.5 F L Pulse Rate 84 81 89 Respiratory Rate 16 16 Blood Pressure 127/68 126/69 Pulse Oximetry 11/23/18 03:00 11/23/18 03:55 11/23/18 04:00 Temperature 99.8 F H Pulse Rate 100 H 79 105 H Respiratory Rate 16 16 Blood Pressure 135/87 115/73 132/75 Pulse Oximetry 11/23/18 05:00 11/23/18 05:37 11/23/18 05:38 Temperature 101.6 F H 101.1 F H Pulse Rate 94 H 85 Respiratory Rate 16 16 Blood Pressure 131/80 Pulse Oximetry 11/23/18 07:31 11/23/18 07:40 Temperature 98.9 F Pulse Rate 81 Respiratory Rate 18 Blood Pressure 124/81 Pulse Oximetry Intake & Output 11/22/18 11/23/18 11/23/18 18:59 06:59 18:59 Intake Total 1000 / 1000 0 / 0 Balance 1000 / 1000 0 / 0 Intake: IV 1000 / 1000 Magnesium Sulfate/Water 40 gm/ 1000 / 1000 1000 ml Premix 40 gm In 1,000 ml @ 2 GM/HR 50 mls/hr IV.CONT Q24H [facility] Rx#:[id number] Intake (Blood Product) Amt 0 / 0 Rbc As-3 Leukoreduced Unit 0 / 0 [id number] Rbc As-3 Leukoreduced Unit 0 / 0 [id number] Result Diagrams: 11/23/18 01:40 11/21/18 10:49 Objective Remarks: GENERAL: Well-nourished, well-developed patient. CARDIOVASCULAR: Regular rate and rhythm without murmurs, gallops, or rubs. RESPIRATORY: Breath sounds equal bilaterally. No accessory muscle use. ABDOMEN/GI: Abdomen soft, non-tender. Fundus: Firm, non-tender at umbilicus. GENITOURINARY: Light bleeding. EXTREMITIES: No cyanosis or edema, non-tender, without signs of DVT. Medications and IVs: Active Medications Acetaminophen (Tylenol) 650 mg PO Q4H PRN PRN Reason: HEADACHE Last Admin: 11/23/18 05:02 Dose: 650 mg Al Hydroxide/Mg Hydroxide (Milk Of Magnesia Liq) 30 ml PO Q12H PRN PRN Reason: Mild Constipation Benzocaine (Americaine 20% Top [place]) 1 spray TOPICAL Q4H PRN PRN Reason: For Perineum Discomfort Bisacodyl (Dulcolax Supp) 10 mg RECTAL DAILY PRN PRN Reason: SEVERE CONSITIPATION Calcium Gluconate (Calcium Gluconate Inj) 1 gm IV.PUSH PRN PRN PRN Reason: Magnesium toxicity Citric Acid/Sodium Citrate (Sodium Citrate/Citric Acid Liq) 30 ml PO [employer] [facility] Stop: 11/25/18 12:44 Diphenhydramine HCl (Benadryl) 25 mg PO Q6H PRN PRN Reason: COUGH AND/OR COLD SYMPTOMS Last Admin: 11/22/18 03:10 Dose: 25 mg Ephedrine Sulfate (Ephedrine/Ns Syringe) 10 mg IV.PUSH UNSCH PRN PRN Reason: SEE LABEL COMMENTS Stop: 11/23/18 14:44 Last Admin: 11/22/18 12:51 Dose: 10 mg Fentanyl Citrate (Fentanyl Inj) 50 mcg IV.PUSH Q1H PRN PRN Reason: Pain Scale 3 - 5 Fentanyl Citrate (Fentanyl Inj) 100 mcg IV.PUSH Q1H PRN PRN Reason: PAIN SCALE 6 TO 10 Guaifenesin/Dextromethorphan (Robitussin Dm Liq) 10 ml PO Q4H PRN PRN Reason: COUGH AND/OR COLD SYMPTOMS Last Admin: 11/22/18 19:53 Dose: 10 ml Lactated Ringer's (Lr 1000 Ml Inj) 1,000 mls @ 3,000 mls/hr IV.SIG UNSCH PRN PRN Reason: compromise or epidural Sodium Chloride (Ns Inj) 500 mls @ 1,000 mls/hr IV.SIG UNSCH PRN PRN Reason: SEE LABEL COMMENTS Magnesium Sulfate (Magnesium Sulfate/Water 40 Gm/1000 Ml Premix) 40 gm in 1, 000 mls @ 50 mls/hr IV.CONT Q24H [facility] Last Admin: 11/23/18 05:31 Dose: Not Given Lactated Ringer's (Lr 1000 Ml Inj) 1,000 mls @ 75 mls/hr IV.CONT .[id number] [facility] Last Admin: 11/23/18 05:31 Dose: Not Given Oxytocin (Pitocin 30 Units/Ns 500 Ml Premix) 30 units in 500 mls @ 2 mls/hr IV.SIG TITRATE PRN; Protocol PRN Reason: For induction of labor Last Admin: 11/22/18 05:30 Dose: 2 milliunit/min, 2 mls/hr Fentanyl/Bupivacaine/Sodium Chlor (Fentanyl 2 Mcg-Bupiv 0.125% Epi) 150 mls @ 12 mls/hr EPIDURAL PRN PRN PRN Reason: for Labor Pain Last Infusion: 11/22/18 22:00 Dose: 12 mls/hr Oxytocin (Pitocin 30 Units/Ns 500 Ml Premix) 30 units in 500 mls @ 125 mls/hr IV.SIG Q4H [facility] Last Admin: 11/23/18 05:34 Dose: 125 mls/hr Labetalol HCl (Trandate Inj) 40 mg IV.PUSH NOW PRN PRN Reason: SEE LABEL COMMENTS Labetalol HCl (Trandate Inj) 80 mg IV.PUSH NOW PRN PRN Reason: SEE LABEL COMMENTS Labetalol HCl (Trandate Inj) 20 mg IV.PUSH NOW PRN PRN Reason: SEE LABEL COMMENTS Lactulose (Lactulose Liq) 30 ml PO DAILY PRN PRN Reason: SEVERE CONSITIPATION Lidocaine HCl (Xylocaine 1% Inj) 0.1 ml I-DERMAL PRN PRN PRN Reason: For IV start Stop: 11/24/18 12:32 Lidocaine HCl (Xylocaine 1% Inj) 10 ml INFILTRATN PRN PRN PRN Reason: For episiotomy repair Stop: 11/23/18 12:32 Mineral Oil (Muri-Lube Oil) 10 ml TOPICAL PRN PRN PRN Reason: PRN perineal massage Miscellaneous Information (Misc Information) 1 each OTHER UNSCH PRN PRN Reason: SEE LABEL COMMENTS Stop: 11/23/18 14:44 Miscellaneous Information (Misc Information) 1 each OTHER UNSCH PRN PRN Reason: SEE LABEL COMMENTS Stop: 11/23/18 14:44 Misoprostol (Cytotec) 200 mcg PO Q4HR [facility] Last Admin: 11/23/18 04:00 Dose: 200 mcg Naloxone HCl (Narcan Inj) 0.1 mg IV.PUSH Q2M PRN PRN Reason: for opiate reversal Nifedipine (Procardia) 10 mg PO NOW PRN PRN Reason: SEE LABEL COMMENTS Nifedipine (Procardia) 20 mg PO NOW PRN PRN Reason: SEE LABEL COMMENTS Nifedipine (Procardia) 20 mg PO NOW PRN PRN Reason: SEE LABEL COMMENTS Ondansetron HCl (Zofran Inj) 4 mg IV.PUSH Q6H PRN PRN Reason: NAUSEA OR VOMITING Last Admin: 11/22/18 19:33 Dose: 4 mg Ondansetron HCl (Zofran Odt) 4 mg PO Q6H PRN PRN Reason: NAUSEA OR VOMITING Oxycodone/Acetaminophen (Percocet 5/325 Mg) 1 tab PO Q4H PRN PRN Reason: PAIN SCALE 3 TO 5 Senna/Docusate Sodium (Shellie-Colace) 1 tab PO BID [facility] Sennosides (Senokot) 17.2 mg PO Q12H PRN PRN Reason: Moderate Constipation Sodium Chloride (Ns Flush) 2 ml IV.FLUSH BID [facility] Last Admin: 11/23/18 01:21 Dose: Not Given Sodium Chloride (Ns Flush) 2 ml IV.FLUSH PRN PRN PRN Reason: FLUSH AFTER USING IV ACCESS Sodium Chloride (Ns Flush) 2 ml IV.FLUSH PRN PRN PRN Reason: FLUSH AFTER USING IV ACCESS Sodium Chloride (Ns Flush) 2 ml IV.FLUSH BID [facility] Sodium Chloride (Ns Flush) 2 ml IV.FLUSH PRN PRN PRN Reason: FLUSH AFTER USING IV ACCESS Witch Adeline/Glycerin (Tucks Pads) 1 applicatio RECTAL QID PRN PRN Reason: HEMORRHOIDS Zolpidem Tartrate (Ambien) 5 mg PO HS PRN PRN Reason: SLEEP Assessment and Plan - Plan Will keep MgSO4 off for now. Pt is doing well. She is s/p and PP hemorrhage.
[2018-11-23] MEDS: Senna/Docusate Sodium 8.6/50 MG Tablet PO SCH ×2 (12:27→22:47)
[2018-11-24] MEDS: Acetaminophen 325 MG Tablet PO PRN ×2 (08:24→20:31)
--- NOTE | 2018-11-24 08:45 | P.PNOB ---
Subjective Post day: 2 Interval history: Patient is day 2 after . Patient's pain is well-controlled. Patient reports eating and drinking without any nausea or vomiting. Patient reports minimal bleeding. Patient has passed gas and had bowel movements. Patient is walking without lower extremity pain or shortness of breath. Patient reports desire for contraception and breast-feeding. States that last night, she had significant vaginal bleeding that soaked through her pad, underwear, and gown. Denies lightheadedness, palpitations, shortness of breath, or significant fatigue. Objective Vital Signs/I&O: Vital Signs 11/23/18 08:40 11/23/18 12:00 11/23/18 13:40 Temperature 99.5 F Pulse Rate 78 84 Respiratory Rate 20 18 Blood Pressure 139/60 136/82 11/23/18 14:40 11/23/18 19:25 11/24/18 00:00 Temperature 98.8 F 98.7 F 98.0 F Pulse Rate 91 H 68 Respiratory Rate 18 18 Blood Pressure 122/88 124/72 11/24/18 03:56 Temperature 97.9 F Pulse Rate 79 Respiratory Rate 18 Blood Pressure 116/70 Result Diagrams: 11/23/18 01:40 11/21/18 10:49 Objective Remarks: GENERAL: Well-nourished, well-developed patient. CARDIOVASCULAR: Regular rate and rhythm without murmurs, gallops, or rubs. RESPIRATORY: Breath sounds equal bilaterally. No accessory muscle use. ABDOMEN/GI: Abdomen soft, non-tender. Fundus: Firm, non-tender at umbilicus. GENITOURINARY: Light to moderate bleeding. EXTREMITIES: No cyanosis or edema, non-tender, without signs of DVT. Medications and IVs: Active Medications Acetaminophen (Tylenol) 650 mg PO Q4H PRN PRN Reason: HEADACHE Last Admin: 11/24/18 08:24 Dose: 650 mg Al Hydroxide/Mg Hydroxide (Milk Of Magnesia Liq) 30 ml PO Q12H PRN PRN Reason: Mild Constipation Benzocaine (Americaine 20% Top [place]) 1 spray TOPICAL Q4H PRN PRN Reason: For Perineum Discomfort Bisacodyl (Dulcolax Supp) 10 mg RECTAL DAILY PRN PRN Reason: SEVERE CONSITIPATION Calcium Gluconate (Calcium Gluconate Inj) 1 gm IV.PUSH PRN PRN PRN Reason: Magnesium toxicity Citric Acid/Sodium Citrate (Sodium Citrate/Citric Acid Liq) 30 ml PO [employer] [facility] Stop: 11/25/18 12:44 Diphenhydramine HCl (Benadryl) 25 mg PO Q6H PRN PRN Reason: COUGH AND/OR COLD SYMPTOMS Last Admin: 11/22/18 03:10 Dose: 25 mg Fentanyl Citrate (Fentanyl Inj) 50 mcg IV.PUSH Q1H PRN PRN Reason: Pain Scale 3 - 5 Fentanyl Citrate (Fentanyl Inj) 100 mcg IV.PUSH Q1H PRN PRN Reason: PAIN SCALE 6 TO 10 Guaifenesin/Dextromethorphan (Robitussin Dm Liq) 10 ml PO Q4H PRN PRN Reason: COUGH AND/OR COLD SYMPTOMS Last Admin: 11/22/18 19:53 Dose: 10 ml Lactated Ringer's (Lr 1000 Ml Inj) 1,000 mls @ 3,000 mls/hr IV.SIG UNSCH PRN PRN Reason: compromise or epidural Sodium Chloride (Ns Inj) 500 mls @ 1,000 mls/hr IV.SIG UNSCH PRN PRN Reason: SEE LABEL COMMENTS Magnesium Sulfate (Magnesium Sulfate/Water 40 Gm/1000 Ml Premix) 40 gm in 1, 000 mls @ 50 mls/hr IV.CONT Q24H [facility] Last Admin: 11/23/18 05:31 Dose: Not Given Lactated Ringer's (Lr 1000 Ml Inj) 1,000 mls @ 75 mls/hr IV.CONT .[id number] [facility] Last Admin: 11/23/18 22:46 Dose: Not Given Oxytocin (Pitocin 30 Units/Ns 500 Ml Premix) 30 units in 500 mls @ 2 mls/hr IV.SIG TITRATE PRN; Protocol PRN Reason: For induction of labor Last Admin: 11/22/18 05:30 Dose: 2 milliunit/min, 2 mls/hr Fentanyl/Bupivacaine/Sodium Chlor (Fentanyl 2 Mcg-Bupiv 0.125% Epi) 150 mls @ 12 mls/hr EPIDURAL PRN PRN PRN Reason: for Labor Pain Last Infusion: 11/22/18 22:00 Dose: 12 mls/hr Oxytocin (Pitocin 30 Units/Ns 500 Ml Premix) 30 units in 500 mls @ 125 mls/hr IV.SIG Q4H [facility] Last Admin: 11/23/18 17:01 Dose: Not Given Labetalol HCl (Trandate Inj) 40 mg IV.PUSH NOW PRN PRN Reason: SEE LABEL COMMENTS Labetalol HCl (Trandate Inj) 80 mg IV.PUSH NOW PRN PRN Reason: SEE LABEL COMMENTS Labetalol HCl (Trandate Inj) 20 mg IV.PUSH NOW PRN PRN Reason: SEE LABEL COMMENTS Lactulose (Lactulose Liq) 30 ml PO DAILY PRN PRN Reason: SEVERE CONSITIPATION Lidocaine HCl (Xylocaine 1% Inj) 0.1 ml I-DERMAL PRN PRN PRN Reason: For IV start Stop: 11/24/18 12:32 Mineral Oil (Muri-Lube Oil) 10 ml TOPICAL PRN PRN PRN Reason: PRN perineal massage Naloxone HCl (Narcan Inj) 0.1 mg IV.PUSH Q2M PRN PRN Reason: for opiate reversal Nifedipine (Procardia) 10 mg PO NOW PRN PRN Reason: SEE LABEL COMMENTS Nifedipine (Procardia) 20 mg PO NOW PRN PRN Reason: SEE LABEL COMMENTS Nifedipine (Procardia) 20 mg PO NOW PRN PRN Reason: SEE LABEL COMMENTS Ondansetron HCl (Zofran Inj) 4 mg IV.PUSH Q6H PRN PRN Reason: NAUSEA OR VOMITING Last Admin: 11/22/18 19:33 Dose: 4 mg Ondansetron HCl (Zofran Odt) 4 mg PO Q6H PRN PRN Reason: NAUSEA OR VOMITING Oxycodone/Acetaminophen (Percocet 5/325 Mg) 1 tab PO Q4H PRN PRN Reason: PAIN SCALE 3 TO 5 Senna/Docusate Sodium (Shellie-Colace) 1 tab PO BID [facility] Last Admin: 11/23/18 22:47 Dose: Not Given Sennosides (Senokot) 17.2 mg PO Q12H PRN PRN Reason: Moderate Constipation Sodium Chloride (Ns Flush) 2 ml IV.FLUSH BID [facility] Last Admin: 11/23/18 22:47 Dose: 2 ml Sodium Chloride (Ns Flush) 2 ml IV.FLUSH PRN PRN PRN Reason: FLUSH AFTER USING IV ACCESS Witch Adeline/Glycerin (Tucks Pads) 1 applicatio RECTAL QID PRN PRN Reason: HEMORRHOIDS Zolpidem Tartrate (Ambien) 5 mg PO HS PRN PRN Reason: SLEEP Assessment and Plan - Diagnosis (1) Hypertension affecting Code(s): O16.9 - Unspecified maternal hypertension, unspecified trimester Status: Acute (2) Vaginal delivery Code(s): O80 - Encounter for full-term uncomplicated delivery Status: Acute - Plan Patient is day 2 after . Patient was counseled to do 6 weeks of pelvic rest. Patient was counseled to follow up in 6 weeks. Patient requested follow-up and contraception. --AF VSS --Continue routine care --Motrin and Percocet when necessary for pain --Encourage OOB --Pelvic rest for 6 weeks will need follow-up appointment at that time. --Contraception: none -- Order H/H for heavy vaginal bleeding x1 last night --Anticipate discharge today if H/H today is stable Discussed w/
[2018-11-24] MEDS: Senna/Docusate Sodium 8.6/50 MG Tablet PO SCH ×2 (10:02→21:00)
[2018-11-24] MEDS ORDERED: miSOPROStol 200 MCG Tablet PO ONE (10:06)
[2018-11-24 10:15] LABS: Hematocrit 27.4 % (35.0-46.0); Hemoglobin 9.4 gm/dL (11.6-15.3)
[2018-11-24] MEDS: miSOPROStol 200 MCG Tablet PO SCH ×3 (11:14→20:31)
[2018-11-24 17:58] VITALS: RESP 18
[2018-11-25 08:26] VITALS: BP 142/71; PULSE 61; TEMP 97.8
--- NOTE | 2018-11-25 08:26 | P.PNOB ---
Subjective Post day: 3 Interval history: Patient is day 3 after . Patient's pain is well-controlled. Patient reports eating and drinking without any nausea or vomiting. Patient reports minimal bleeding. Patient has passed gas and had three bowel movements. Patient is walking without lower extremity pain or shortness of breath. Objective Vital Signs/I&O: Vital Signs 11/24/18 08:50 11/24/18 13:04 11/24/18 13:10 Temperature 97.8 F 98.4 F Pulse Rate 76 89 Respiratory Rate 19 19 Blood Pressure 121/80 149/86 H 11/24/18 17:46 11/24/18 20:00 11/25/18 00:00 Temperature 98.3 F 98.1 F Pulse Rate 72 86 78 Respiratory Rate 18 18 18 Blood Pressure 142/89 H 147/83 H 133/74 11/25/18 04:44 11/25/18 08:00 Temperature 98.3 F 97.8 F Pulse Rate 63 61 Respiratory Rate 18 18 Blood Pressure 117/68 142/71 H Result Diagrams: 11/24/18 09:13 11/21/18 10:49 Objective Remarks: GENERAL: Well-nourished, well-developed patient. CARDIOVASCULAR: Regular rate and rhythm without murmurs, gallops, or rubs. RESPIRATORY: Breath sounds equal bilaterally. No accessory muscle use. ABDOMEN/GI: Abdomen soft, non-tender. Fundus: Firm, non-tender at umbilicus. GENITOURINARY: Light to moderate bleeding. EXTREMITIES: No cyanosis or edema, non-tender, without signs of DVT. 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 OBED Stop: 11/25/18 12:44 Diphenhydramine HCl (Benadryl) 25 mg PO Q6H PRN PRN Reason: COUGH AND/OR COLD SYMPTOMS Last Admin: 11/22/18 03:10 Dose: 25 mg Fentanyl Citrate (Fentanyl Inj) 50 mcg IV.PUSH Q1H PRN PRN Reason: Pain Scale 3 - 5 Fentanyl Citrate (Fentanyl Inj) 100 mcg IV.PUSH Q1H PRN PRN Reason: PAIN SCALE 6 TO 10 Guaifenesin/Dextromethorphan (Robitussin Dm Liq) 10 ml PO Q4H PRN PRN Reason: COUGH AND/OR COLD SYMPTOMS Last Admin: 11/22/18 19:53 Dose: 10 ml Lactated Ringer's (Lr 1000 Ml Inj) 1,000 mls @ 3,000 mls/hr IV.SIG UNSCH PRN PRN Reason: compromise or epidural Sodium Chloride (Ns Inj) 500 mls @ 1,000 mls/hr IV.SIG UNSCH PRN PRN Reason: SEE LABEL COMMENTS Magnesium Sulfate (Magnesium Sulfate/Water 40 Gm/1000 Ml Premix) 40 gm in 1, 000 mls @ 50 mls/hr IV.CONT Q24H [facility] Last Admin: 11/23/18 05:31 Dose: Not Given Lactated Ringer's (Lr 1000 Ml Inj) 1,000 mls @ 75 mls/hr IV.CONT .[id number] [facility] Last Admin: 11/24/18 23:00 Dose: Not Given Oxytocin (Pitocin 30 Units/Ns 500 Ml Premix) 30 units in 500 mls @ 2 mls/hr IV.SIG TITRATE PRN; Protocol PRN Reason: For induction of labor Last Admin: 11/22/18 05:30 Dose: 2 milliunit/min, 2 mls/hr Fentanyl/Bupivacaine/Sodium Chlor (Fentanyl 2 Mcg-Bupiv 0.125% Epi) 150 mls @ 12 mls/hr EPIDURAL PRN PRN PRN Reason: for Labor Pain Last Infusion: 11/22/18 22:00 Dose: 12 mls/hr Oxytocin (Pitocin 30 Units/Ns 500 Ml Premix) 30 units in 500 mls @ 125 mls/hr IV.SIG Q4H [facility] Last Admin: 11/23/18 17:01 Dose: Not Given Labetalol HCl (Trandate Inj) 40 mg IV.PUSH NOW PRN PRN Reason: SEE LABEL COMMENTS Labetalol HCl (Trandate Inj) 80 mg IV.PUSH NOW PRN PRN Reason: SEE LABEL COMMENTS Labetalol HCl (Trandate Inj) 20 mg IV.PUSH NOW PRN PRN Reason: SEE LABEL COMMENTS Lactulose (Lactulose Liq) 30 ml PO DAILY PRN PRN Reason: SEVERE CONSITIPATION Mineral Oil (Muri-Lube Oil) 10 ml TOPICAL PRN PRN PRN Reason: PRN perineal massage Misoprostol (Cytotec) 200 mcg PO TID [facility] Last Admin: 11/24/18 20:31 Dose: 200 mcg Naloxone HCl (Narcan Inj) 0.1 mg IV.PUSH Q2M PRN PRN Reason: for opiate reversal Nifedipine (Procardia) 10 mg PO NOW PRN PRN Reason: SEE LABEL COMMENTS Nifedipine (Procardia) 20 mg PO NOW PRN PRN Reason: SEE LABEL COMMENTS Nifedipine (Procardia) 20 mg PO NOW PRN PRN Reason: SEE LABEL COMMENTS Ondansetron HCl (Zofran Inj) 4 mg IV.PUSH Q6H PRN PRN Reason: NAUSEA OR VOMITING Last Admin: 11/22/18 19:33 Dose: 4 mg Ondansetron HCl (Zofran Odt) 4 mg PO Q6H PRN PRN Reason: NAUSEA OR VOMITING Oxycodone/Acetaminophen (Percocet 5/325 Mg) 1 tab PO Q4H PRN PRN Reason: PAIN SCALE 3 TO 5 Senna/Docusate Sodium (Shellie-Colace) 1 tab PO BID [facility] Last Admin: 11/24/18 21:00 Dose: Not Given Sennosides (Senokot) 17.2 mg PO Q12H PRN PRN Reason: Moderate Constipation Sodium Chloride (Ns Flush) 2 ml IV.FLUSH BID [facility] Last Admin: 11/24/18 20:32 Dose: 2 ml Sodium Chloride (Ns Flush) 2 ml IV.FLUSH PRN PRN PRN Reason: FLUSH AFTER USING IV ACCESS Witch Adeline/Glycerin (Tucks Pads) 1 applicatio RECTAL QID PRN PRN Reason: HEMORRHOIDS Zolpidem Tartrate (Ambien) 5 mg PO HS PRN PRN Reason: SLEEP Assessment and Plan - Diagnosis (1) Hypertension affecting Code(s): O16.9 - Unspecified maternal hypertension, unspecified trimester Status: Acute (2) Vaginal delivery Code(s): O80 - Encounter for full-term uncomplicated delivery Status: Acute - Plan Patient is day 3 after . Patient was counseled to do 6 weeks of pelvic rest. Patient was counseled to follow up in 6 weeks. Patient requested follow-up and contraception. --AF VSS --Continue routine care --Motrin and Tylenol when necessary for pain --Encourage OOB --Pelvic rest for 6 weeks will need follow-up appointment at that time. --Contraception: outpatient IUD -- repeat H/H 9.4 and 27.4. Patient denies any headache or dizziness and reports decreased bleeding. --Discharge today with recommendation to be seen by physician for BP evaluation within [address] Raymond
== END 2018-11-25 11:06 | disposition home or self-care (01) | DRG 768 ==
LOC: HOBED 10:23 → H2E 14:19 → H1EA 11-23 08:44
PROVIDERS: ADMIT Obstetrics & Gynecology; ATTEND Obstetrics & Gynecology
CPT/HCPCS: 36430; 59025; 80053; 81001; 82570; 84155; 84157; 84550; 85014; 85018; 85025; 85027; 86850; 86900; 86901; 86920; 86923; 99285; J0690; J2405; J2590; J3475; J7120; P9016